=== PATIENT | female | born 1980 | race Caucasian/White ===

== ENCOUNTER 2019-07-29 09:17 | Emergency (ER) | payer MEDICAID, SELFPAY ==
[2019-07-29 09:18] VITALS: BP 143/94; PULSE 55; RESP 16; TEMP 36.4; O2SAT 98; BMI 28.3
[2019-07-29 09:22] VITALS: O2SAT 99
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
[2019-07-29] MEDS: Ondansetron ODT 4 MG Tablet PO (09:45)
[2019-07-29] MEDS: Naproxen 500 MG Tablet PO (09:45)
== END 2019-07-29 10:04 | disposition home or self-care (01) ==
PROVIDERS: Emergency Provider Emergency Medicine
DX: S16.1XXA Strain of muscle, fascia and tendon at neck level, initial encounter (principal); V49.50XA Passenger injured in collision with unspecified motor vehicles in traffic accident, initial encounter; Y93.89 Activity, other specified; F17.200 Nicotine dependence, unspecified, uncomplicated
CPT/HCPCS: 99283